=== PATIENT | male | born 2000 | race Caucasian/White ===

== ENCOUNTER 2019-09-10 22:32 | Emergency (ER) | payer OTHER ==
[~2019-09-10] VITALS: Ht 160 cm; Wt 47.9 kg
[2019-09-11 00:13] VITALS: BP 128/84
== END 2019-09-11 00:13 | disposition home or self-care (01) ==
LOC: ED 22:32
DX: S40.211A Abrasion of right shoulder, initial encounter (principal); V49.59XA Passenger injured in collision with other motor vehicles in traffic accident, initial encounter; Y93.89 Activity, other specified; Y92.488 Other paved roadways as the place of occurrence of the external cause; Y99.8 Other external cause status
CPT/HCPCS: Q0092